=== PATIENT | male | born 1965 | race Two or more races ===

== ENCOUNTER 2021-05-03 13:58 | Inpatient (IN) | payer OTHER ==
[~2021-05-03] VITALS: Ht 167.6 cm; Wt 87.2 kg
[2021-05-03 15:26] LABS: Basophils # (auto) 0 10 ^3/uL (0-0.2); Basophils % (auto) 0.6 % (0.0-2.0); Eosinophils # (auto) 0 10 ^3/uL (0-0.8); Eosinophils % (auto) 0.1 % (0.0-7.0); Hematocrit 43.8 % (41.0-53.0); Hemoglobin 15.8 g/dL (13.5-17.5); Lymphocytes # (auto) 0.9 10 ^3/uL (0.4-5.4); Lymphocytes % (auto) 21.2 % (10.0-50.0); Mean Corpuscular Hemoglobin 31.7 pg (28.0-32.0); Mean Corpuscular Hgb Conc. 36.1 g/dL (32.0-36.0); Mean Corpuscular Volume 87.8 fL (80.0-100.0); Monocytes # (auto) 0.5 10 ^3/uL (0-1.3); Monocytes % (auto) 12.1 % (0.0-12.0); Neutrophils # (auto) 2.7 10 ^3/uL (1.6-8.6); Nucleated Red Blood Cells % 0.2 %; Red Blood Cells 4.99 10^6/uL (4.5-5.90); Red Cell Distribution Width 12.8 % (11.8-14.3); White Blood Cell 4.1 10^3/uL (4.4-10.8)
[2021-05-03 15:37] LABS: Albumin 3.2 g/dL (3.4-5.0); Calcium 8.4 mg/dL (8.5-10.1)
[2021-05-03 15:40] LABS: BUN/Creatinine Ratio 12.5; Bilirubin, Total 0.8 mg/dL (0.2-1.0); Total Protein 7.8 g/dL (6.4-8.2)
[2021-05-03 17:48] LABS: Magnesium 2.4 mg/dL (1.6-2.6)
[2021-05-03 18:35] LABS: INR 1.01 (0.9-1.15); Partial Thromboplastin Time 32.8 sec (23.6-33.0)
[2021-05-03] MEDS ORDERED: AZITHROMYCIN 500MG/ 250ML 250 ML IV ONE (20:30)
[2021-05-03] MEDS ORDERED: SODIUM CHLORIDE 0.9% 1,000 ML IVB ONE (20:30)
[2021-05-03] MEDS ORDERED: PANTOPRAZOLE 40 MG/10 ML VIAL INJ IV ONE (20:30)
[2021-05-03] MEDS ORDERED: ACETAMINOPHEN 500 MG TAB PO PRN (22:30)
[2021-05-03] MEDS ORDERED: DOCUSATE SOD 100 MG CAP PO PRN (22:30)
[2021-05-03] MEDS ORDERED: NITROGLYCERIN 0.4 MG SL TAB SL PRN (22:30)
[2021-05-03] MEDS ORDERED: ONDANSETRON HCL 4 MG/2 ML VIAL IV PRN (22:30)
[2021-05-03] MEDS ORDERED: ALBUTEROL SULF HFA 90MCG INH 200DOSE IN PRN (22:30)
[2021-05-03] MEDS ORDERED: MORPHINE SULF INJ 2 MG/ML SYRINGE 1ML IV PRN (22:30)
[2021-05-03 23:29] VITALS: BP 135/73
[2021-05-04 00:16] LABS: Urine Bacteria FEW /hpf (None Seen); Urine Blood Negative /uL (Negative); Urine Mucus FEW (None Seen); Urine Specific Gravity 1.012 (1.001-1.035); Urine WBC 1 /hpf (0 - 3)
[2021-05-04] MEDS: SODIUM CHLOR 0.9% PF (SALINE LOCK) 10ML VIAL/SYR IV SCH ×3 (06:15→22:21)
[2021-05-04] MEDS: DexAMETHasone SOD PHOS 10MG/1ML VIAL INJ IV SCH (08:42)
[2021-05-04] MEDS: FAMOTIDINE (10MG/ML) 2ML VL IV SCH ×2 (08:42→22:20)
[2021-05-04] MEDS: MULTIPLE VITAMIN TAB PO SCH (08:42)
[2021-05-04] MEDS: ASCORBIC ACID 1,000 MG TAB PO SCH (08:42)
[2021-05-04] MEDS: cefTRIAXone 1GM/50ML D5W 50 ML IV SCH (08:42)
[2021-05-04 08:43] LABS: Basophils # (auto) 0 10 ^3/uL (0-0.2); Basophils % (auto) 0.6 % (0.0-2.0); Eosinophils # (auto) 0 10 ^3/uL (0-0.8); Eosinophils % (auto) 0.5 % (0.0-7.0); Hematocrit 41.3 % (41.0-53.0); Hemoglobin 14.6 g/dL (13.5-17.5); Lymphocytes # (auto) 1.1 10 ^3/uL (0.4-5.4); Lymphocytes % (auto) 34.5 % (10.0-50.0); Mean Corpuscular Hemoglobin 31.3 pg (28.0-32.0); Mean Corpuscular Hgb Conc. 35.4 g/dL (32.0-36.0); Mean Corpuscular Volume 88.4 fL (80.0-100.0); Monocytes # (auto) 0.6 10 ^3/uL (0-1.3); Monocytes % (auto) 17.4 % (0.0-12.0); Neutrophils # (auto) 1.5 10 ^3/uL (1.6-8.6); Nucleated Red Blood Cells % 0.1 %; Red Blood Cells 4.67 10^6/uL (4.5-5.90); Red Cell Distribution Width 12.9 % (11.8-14.3); White Blood Cell 3.2 10^3/uL (4.4-10.8)
[2021-05-04] MEDS: ZINC SULFATE 220mg CAP or TAB PO SCH (08:43)
[2021-05-04] MEDS: CHOLECALCIFEROL (VITD3) 2,000 UNIT CAP/TAB PO SCH (08:43)
[2021-05-04] MEDS: HYDROcodone-ACET 5/325MG TAB PO PRN ×2 (08:44→16:23)
[2021-05-04 08:58] LABS: Albumin 2.8 g/dL (3.4-5.0); Calcium 8.1 mg/dL (8.5-10.1); Potassium 4.4 mmol/L (3.5-5.1)
[2021-05-04 09:00] LABS: BUN/Creatinine Ratio 11.4
[2021-05-04 09:02] LABS: Bilirubin, Total 0.9 mg/dL (0.2-1.0); Total Protein 6.7 g/dL (6.4-8.2)
[2021-05-04] MEDS ORDERED: ENOXAPARIN SOD 40 MG/0.4 ML SYRINGE SC SCH (10:00)
[2021-05-04] MEDS ORDERED: BUDESONIDE (INHALATION) 180 MCG IH IN SCH (10:00)
[2021-05-04 18:20] VITALS: BP 131/81
[2021-05-04 20:00] VITALS: BP 127/92
[2021-05-04 22:00] VITALS: BP 127/92
[2021-05-04] MEDS ORDERED: AZITHROMYCIN 500MG/ 250ML 250 ML IV SCH (22:00)
[2021-05-05 05:00] VITALS: BP 122/74
[2021-05-05] MEDS: HYDROcodone-ACET 5/325MG TAB PO PRN (05:21)
[2021-05-05] MEDS: SODIUM CHLOR 0.9% PF (SALINE LOCK) 10ML VIAL/SYR IV SCH ×2 (05:21→14:00)
[2021-05-05 06:10] LABS: Hematocrit 41.5 % (41.0-53.0); Hemoglobin 14.8 g/dL (13.5-17.5); Mean Corpuscular Hemoglobin 31.6 pg (28.0-32.0); Mean Corpuscular Hgb Conc. 35.8 g/dL (32.0-36.0); Mean Corpuscular Volume 88.2 fL (80.0-100.0); Red Cell Distribution Width 12.6 % (11.8-14.3); White Blood Cell 3.6 10^3/uL (4.4-10.8)
[2021-05-05 06:25] LABS: Basophils % (manual) 0 (0.0-2.0); Blast Cells 0; Metamyelocytes % 0; Myelocytes % 0; Promyelocytes % 0; Reactive Lymphocytes 0
[2021-05-05 08:36] VITALS: BP 131/82
[2021-05-05 09:01] LABS: Band Neutrophils % (manual) 2; Eosinophils % (manual) 1 (0-7); Lymphocytes % (manual) 23 (10.0-50.0); Monocytes % (manual) 14 (0-12)
[2021-05-05] MEDS: CHOLECALCIFEROL (VITD3) 2,000 UNIT CAP/TAB PO SCH (09:34)
[2021-05-05] MEDS: FAMOTIDINE (10MG/ML) 2ML VL IV SCH (09:34)
[2021-05-05] MEDS: cefTRIAXone 1GM/50ML D5W 50 ML IV SCH (09:34)
[2021-05-05] MEDS: ASCORBIC ACID 1,000 MG TAB PO SCH (09:34)
[2021-05-05] MEDS: MULTIPLE VITAMIN TAB PO SCH (09:34)
[2021-05-05] MEDS: DexAMETHasone SOD PHOS 10MG/1ML VIAL INJ IV SCH (09:34)
[2021-05-05] MEDS: ZINC SULFATE 220mg CAP or TAB PO SCH (09:35)
[2021-05-05 13:00] VITALS: BP 145/77
[2021-05-05] MEDS ORDERED: DOXY-286 PO (14:03)
[2021-05-05] MEDS ORDERED: DEX4T PO (14:03)
[2021-05-05] MEDS ORDERED: FAMO20TA10 PO (14:03)
[2021-05-06] MEDS ORDERED: AZIT500T66 PO (12:03)
== END 2021-05-05 16:07 | disposition home or self-care (01) | DRG 177 ==
LOC: ER 13:58 → OVERFLOW 22:19 → EAST 05-04 18:45
PROVIDERS: ADMIT Nurse Practitioner Family; ATTEND Hospitalist
DX: U07.1 COVID-19 (principal); J12.82 Pneumonia due to coronavirus disease 2019; J96.01 Acute respiratory failure with hypoxia; J84.9 Interstitial pulmonary disease, unspecified; K92.1 Melena; J98.11 Atelectasis; Z68.1 Body mass index [BMI] 19.9 or less, adult; E66.01 Morbid (severe) obesity due to excess calories; Z82.49 Family history of ischemic heart disease and other diseases of the circulatory system; Z79.899 Other long term (current) drug therapy
CPT/HCPCS: 36415; 71045; 74176; 80053; 81001; 83036; 83605; 83690; 83735; 85007; 85025; 85027; 85379; 85610; 85730; 87040; 87426; 93005; 96365; 96375; C9113; G0378; J0696; J1100; J3490